=== PATIENT | female | born 1940 | race Caucasian/White ===

== ENCOUNTER 2016-03-05 20:49 | Emergency (ER) | payer MEDICARE, OTHER ==
[2016-03-05] MEDS ORDERED: ALTEPLASE, RECOMBINANT 50 MG PDS IV ONE ×3 (21:11→21:15)
[2016-03-05 21:23] LABS: BASOPHILS % (AUTO) 1 % (0-3); EOSINOPHILS % (AUTO) 3 % (0-9); HEMATOCRIT 38 % (35-47); MEAN CORPUSCULAR HGB CONC 32.7 gm/dl (32.0-36.0); MONOCYTES % (AUTO) 14.4 % (0-12); NEUTROPHILS % (AUTO) 50.1 % (37-80)
[2016-03-05] MEDS ORDERED: LEVETIRACETAM IV ONE ×2 (21:26→21:27)
[2016-03-05 21:27] VITALS: TEMP 98.2
[2016-03-05 21:31] LABS: CALCIUM 8.9 mg/dl (8.5-10.1)
[2016-03-05] MEDS ORDERED: LORAZEPAM 2 MG/ML SOL IV ONE (21:32)
[2016-03-05] MEDS ORDERED: LORAZEPAM 2 MG/ML SOL ONE (21:33)
[2016-03-05] MEDS ORDERED: LIDOCAINE HCL 2% (100 MG) CARP ONE (21:44)
[2016-03-05] MEDS ORDERED: ATROPINE 0.1 MG/ML SOL ONE (21:44)
[2016-03-05] MEDS ORDERED: ETOMIDATE 2 MG/ML SOL IV ONE ×2 (21:45→22:16)
[2016-03-05] MEDS ORDERED: SUCCINYLCHOLINE CHLORIDE 20 MG/ML SOL IV ONE ×2 (21:45→22:16)
[2016-03-05] MEDS ORDERED: KETAMINE HYDROCHLORIDE 50 MG/ML SOL ONE (22:02)
[2016-03-05] MEDS ORDERED: KETAMINE HYDROCHLORIDE 50 MG/ML SOL IV ONE ×2 (22:16→22:25)
[2016-03-05 22:33] LABS: APPEARANCE,URINE Slightly Cloudy; BILIRUBIN,URINE NEGATIVE (NEGATIVE); COLOR,URINE Yellow; GLUCOSE, URINE (UA) NEGATIVE (NEGATIVE); KETONES,URINE NEGATIVE (NEGATIVE); LEUKOCYTE ESTERASE ,URINE NEGATIVE (NEGATIVE); NITRATE,URINE NEGATIVE (NEGATIVE); OCCULT BLOOD,URINE 2+ (NEG-TRACE); PH,URINE 5.5; UROBILINOGEN,URINE 0.2 (0.2-1.0 EU)
[2016-03-05 22:48] LABS: WBC,URINE 0-1 (0-5AV/HPF)
[2016-03-05 23:41] VITALS: BP 188/89; PULSE 88; RESP 10; O2SAT 98
== END 2016-03-05 22:30 | disposition short-term general hospital (02) | DRG 66 ==
LOC: ED 20:49
DX: I63.9 Cerebral infarction, unspecified (principal); R56.9 Unspecified convulsions
CPT/HCPCS: 31500; 70450; 71010; 80048; 81001; 85025; 85610; 87088; 99291; J0330; J0461; J2001; J2060; J2997; J1953

== ENCOUNTER 2016-09-23 04:39 | Emergency (ER) | payer MEDICARE, OTHER ==
[2016-09-23] MEDS ORDERED: LABETALOL HYDROCHLORIDE 5 MG/ML SOL IV ONE ×2 (05:18→05:19)
[2016-09-23 05:21] LABS: BASOPHILS % (AUTO) 1 % (0-3); EOSINOPHILS % (AUTO) 3 % (0-9); HEMATOCRIT 45 % (35-47); MEAN CORPUSCULAR HGB CONC 31.7 gm/dl (32.0-36.0); MEAN CORPUSCULAR VOLUME 95 fL (81-99); MONOCYTES % (AUTO) 13.2 % (0-12); NEUTROPHILS % (AUTO) 42.9 % (37-80)
[2016-09-23 05:30] VITALS: TEMP 99.4
[2016-09-23] MEDS ORDERED: SODIUM CHLORIDE 0.9% 1000ML 1,000 ML IV ONE ×3 (05:30→06:50)
[2016-09-23] MEDS ORDERED: ALTEPLASE, RECOMBINANT 50 MG PDS IV ONE ×4 (05:43→05:57)
[2016-09-23 05:44] LABS: APPEARANCE,URINE Clear; BILIRUBIN,URINE NEGATIVE (NEGATIVE); COLOR,URINE Yellow; GLUCOSE, URINE (UA) NEGATIVE (NEGATIVE); KETONES,URINE NEGATIVE (NEGATIVE); LEUKOCYTE ESTERASE ,URINE NEGATIVE (NEGATIVE); NITRATE,URINE NEGATIVE (NEGATIVE); OCCULT BLOOD,URINE TRACE LYSED (NEG-TRACE); UROBILINOGEN,URINE 0.2 (0.2-1.0 EU)
[2016-09-23 05:46] LABS: ALT 9 IU/L (14-63); CALCIUM 8.7 mg/dl (8.5-10.1); GLOM FILT RATE 28 mL/min (>60); POTASSIUM 3.7 mMol/L (3.5-5.1); SODIUM 140 mMol/L (136-145); THYROID STIMULATING HORMONE 6.539 uIU/ml (0.358-3.740)
[2016-09-23 05:55] LABS: RBC,URINE 0-3 (0-3AV/HPF); WBC,URINE 0-1 (0-5AV/HPF)
[2016-09-23] MEDS ORDERED: FOSPHENYTOIN 50 MG PE/ML SOL IV ONE (06:12)
[2016-09-23] MEDS ORDERED: FOSPHENYTOIN 50 MG PE/ML SOL ONE (06:20)
[2016-09-23] MEDS ORDERED: LORAZEPAM 2 MG/ML SOL IV ONE (06:53)
[2016-09-23] MEDS ORDERED: ATROPINE 0.1 MG/ML SOL ONE (07:10)
[2016-09-23] MEDS ORDERED: ETOMIDATE 2 MG/ML SOL IV ONE ×3 (07:10→07:31)
[2016-09-23] MEDS ORDERED: SUCCINYLCHOLINE CHLORIDE 20 MG/ML SOL IV ONE (07:11)
[2016-09-23] MEDS ORDERED: ROCURONIUM BROMIDE 10 MG/ML SOL IV ONE ×2 (07:11→07:32)
[2016-09-23] MEDS ORDERED: LIDOCAINE HCL 2% (100 MG) CARP ONE (07:11)
[2016-09-23] MEDS ORDERED: ATROPINE 0.1 MG/ML SOL IV ONE ×2 (07:19→07:24)
[2016-09-23] MEDS ORDERED: NOREPINEPHRINE BITARTRATE 4 MG/4 ML SOL IV ONE (07:38)
[2016-09-23] MEDS ORDERED: SODIUM CHLORIDE 0.9% FLUSH 10 ML SOL IV PRN (07:41)
[2016-09-23] MEDS ORDERED: NOREPINEPHRINE BITARTRATE 4 MG/4 ML SOL IV SCH (07:45)
[2016-09-23] MEDS ORDERED: LEVETIRACETAM (PREMIX) 1 GM 1 GM/100 ML SOL IV ONE ×2 (07:54→07:58)
[2016-09-23 08:45] VITALS: BP 73/34
[2016-09-23 08:47] VITALS: PULSE 43; RESP 20; O2SAT 91
== END 2016-09-23 08:00 | disposition short-term general hospital (02) | DRG 65 ==
LOC: ED 04:39
DX: I63.9 Cerebral infarction, unspecified (principal); G81.04 Flaccid hemiplegia affecting left nondominant side; R56.9 Unspecified convulsions; R50.9 Fever, unspecified; R79.89 Other specified abnormal findings of blood chemistry; R09.02 Hypoxemia; R41.0 Disorientation, unspecified
CPT/HCPCS: 36415; 70450; 80053; 81003; 84443; 84484; 85025; 85610; 87040; 93005; 99291; J0330; J0461; J2001; J2997; Q2009; J1953

== ENCOUNTER 2017-09-22 20:27 | Emergency (ER) | payer MEDICARE, OTHER ==
[2017-09-22] MEDS ORDERED: SODIUM CHLORIDE 0.9% 1000ML 1,000 ML IV SCH (21:00)
[2017-09-22 21:01] LABS: BASOPHILS % (AUTO) 1 % (0-3); EOSINOPHILS % (AUTO) 3 % (0-9); HEMATOCRIT 44 % (35-47); HEMOGLOBIN 13.9 gm/dl (12.0-15.5); LYMPHOCYTES % (AUTO) 31.08 % (10-50); MEAN CORPUSCULAR HEMOGLOBIN 30.8 pg (27.0-32.0); MEAN CORPUSCULAR HGB CONC 31.3 gm/dl (32.0-36.0); MONOCYTES % (AUTO) 12.7 % (0-12); NEUTROPHILS % (AUTO) 52.2 % (37-80)
[2017-09-22 21:04] LABS: MEAN CORPUSCULAR VOLUME 99 fL (81-99)
[2017-09-22 21:24] LABS: ALBUMIN 3.3 gm/dl (3.4-5.0); ALKALINE PHOSPHATASE 79 IU/L (46-116); ALT 8 IU/L (14-63); AST 8 IU/L (15-37); BILIRUBIN,TOTAL 0.2 mg/dl (0.2-1.0); BLOOD UREA NITROGEN 28 mg/dl (7-18); CARBON DIOXIDE 28.9 mEq/L (21-32); CHLORIDE 104 mMol/L (98-107); CREATININE 1.61 mg/dl (0.60-1.00); GLUCOSE 140 mg/dl (74-106); POTASSIUM 4.7 mMol/L (3.5-5.1); SODIUM 139 mMol/L (136-145); THYROID STIMULATING HORMONE 2.179 uIU/ml (0.358-3.740); TOTAL PROTEIN 7.6 gm/dl (6.4-8.2); TROP I < 0.017 ng/ml (0.000-0.056)
[2017-09-22 21:27] LABS: APPEARANCE,URINE Slightly Cloudy; BILIRUBIN,URINE NEGATIVE (NEGATIVE); COLOR,URINE Yellow; GLUCOSE, URINE (UA) NEGATIVE (NEGATIVE); KETONES,URINE NEGATIVE (NEGATIVE); LEUKOCYTE ESTERASE ,URINE 3+ (NEGATIVE); NITRATE,URINE NEGATIVE (NEGATIVE); OCCULT BLOOD,URINE 2+ (NEG-TRACE); UROBILINOGEN,URINE 0.2 (0.2-1.0 EU)
[2017-09-22 21:39] LABS: BACTERIA 1+ (< 1+); CRYSTALS NEGATIVE (0-3 AVE/HPF); EPITHELIAL CELLS 0-3 (SQUAMOUS); WBC,URINE 90-100 (0-5AV/HPF)
[2017-09-22] MEDS ORDERED: NITROGLYCERIN 0.4 MG TAB SL ONE (21:46)
[2017-09-22] MEDS ORDERED: NITROGLYCERIN 0.4 MG TAB SL PRN (21:50)
[2017-09-22] MEDS ORDERED: MAGNESIUM SULFATE 5 GM/10 ML SOL IV ONE (21:51)
[2017-09-22] MEDS ORDERED: MAGNESIUM SULFATE 5 GM/10 ML SOL ONE (21:53)
[2017-09-22] MEDS ORDERED: HALOPERIDOL LACTATE 5 MG/ML SOL IM ONE (22:09)
[2017-09-22] MEDS ORDERED: KETOROLAC TROMETHAMINE 30 MG/ML SOL ONE (22:09)
[2017-09-22] MEDS ORDERED: KETOROLAC TROMETHAMINE 30 MG/ML SOL IV ONE (22:10)
[2017-09-22] MEDS ORDERED: HALOPERIDOL LACTATE 5 MG/ML SOL ONE (22:19)
[2017-09-22] MEDS ORDERED: SULFAMETHOXAZOLE/TRIMETHOPRI 800/160 MG ONE (22:39)
[2017-09-22] MEDS ORDERED: LEVETIRACETAM 100 MG/ML SOL PO SCH (22:45)
[2017-09-22] MEDS ORDERED: METOPROLOL TARTRATE 5 MG/5 ML SOL IV ONE ×4 (22:46→23:05)
[2017-09-22] MEDS ORDERED: LEVETIRACETAM 250 MG TAB ONE (22:51)
[2017-09-23 00:15] VITALS: BP 188/87; PULSE 56; RESP 16; TEMP 97.4; O2SAT 98
[2017-09-23] MEDS ORDERED: SULFAMETHOXAZOLE/TRIMETHOPRI 800/160 MG PO SCH (09:00)
== END 2017-09-23 00:01 | DRG 948 ==
LOC: ED 20:27 → UNDOADMIN 22:00 → ACUTE CARE 22:00
DX: R41.82 Altered mental status, unspecified (principal); N30.00 Acute cystitis without hematuria; F31.9 Bipolar disorder, unspecified; R47.81 Slurred speech; R25.3 Fasciculation; R41.0 Disorientation, unspecified; R40.2362 Coma scale, best motor response, obeys commands, at arrival to emergency department; R40.2142 Coma scale, eyes open, spontaneous, at arrival to emergency department; R40.2242 Coma scale, best verbal response, confused conversation, at arrival to emergency department; I10 Essential (primary) hypertension
CPT/HCPCS: 36415; 70450; 71045; 80053; 81001; 84443; 84484; 85025; 87088; 93005; 96365; 96366; 96372; 96374; 96375; 99284; 99285; J1630; J1885; J3475; A9270-GY; J3490

== ENCOUNTER 2018-07-25 12:12 | Emergency (ER) | payer MEDICARE, OTHER ==
[2018-07-25 12:24] VITALS: TEMP 97.5
[2018-07-25 12:54] LABS: BASOPHILS % (AUTO) 0 % (0-3); EOSINOPHILS % (AUTO) 1 % (0-9); HEMATOCRIT 34 % (35-47); HEMOGLOBIN 10.4 gm/dl (12.0-15.5); LYMPHOCYTES % (AUTO) 13.8 % (10-50); MEAN CORPUSCULAR HEMOGLOBIN 33.1 pg (27.0-32.0); MEAN CORPUSCULAR HGB CONC 30.7 gm/dl (32.0-36.0); MONOCYTES % (AUTO) 11.8 % (0-12); NEUTROPHILS % (AUTO) 72.6 % (37-80)
[2018-07-25 12:56] LABS: MEAN CORPUSCULAR VOLUME 108 fL (81-99)
[2018-07-25 13:04] LABS: ALBUMIN 2.2 gm/dl (3.4-5.0); BILIRUBIN,TOTAL 0.3 mg/dl (0.2-1.0); CALCIUM 10.1 mg/dl (8.5-10.1); CARBON DIOXIDE 27.8 mEq/L (21-32); CREATININE 1.82 mg/dl (0.60-1.00); POTASSIUM 4.6 mMol/L (3.5-5.1); TOTAL PROTEIN 6.6 gm/dl (6.4-8.2)
[2018-07-25 15:42] VITALS: RESP 20; O2SAT 99
[2018-07-25 15:43] VITALS: BP 166/65; PULSE 78
== END 2018-07-25 15:31 | disposition short-term general hospital (02) | DRG 884 ==
LOC: ED 12:12
DX: R40.4 Transient alteration of awareness (principal); R40.2362 Coma scale, best motor response, obeys commands, at arrival to emergency department; R40.2142 Coma scale, eyes open, spontaneous, at arrival to emergency department; R40.2242 Coma scale, best verbal response, confused conversation, at arrival to emergency department
CPT/HCPCS: 36415; 71045; 80053; 84484; 85025; 93005; 99284; 99285

== ENCOUNTER 2018-08-02 12:31 | Emergency (ER) | payer MEDICARE, OTHER ==
[2018-08-02 12:48] VITALS: RESP 16; TEMP 97.8
[2018-08-02] MEDS ORDERED: SODIUM CHLORIDE 0.9% 1000ML 1,000 ML IV ONE (13:22)
[2018-08-02 13:55] LABS: LACTIC ACID 2.4 mMol/L (0.0-2.0)
[2018-08-02 14:14] LABS: CRP INFLAMMATORY 50.63 mg/dl (0.00-0.33)
[2018-08-02 14:38] LABS: APPEARANCE,URINE Cloudy; BILIRUBIN,URINE NEGATIVE (NEGATIVE); COLOR,URINE Yellow; GLUCOSE, URINE (UA) NEGATIVE (NEGATIVE); KETONES,URINE NEGATIVE (NEGATIVE); LEUKOCYTE ESTERASE ,URINE 2+ (NEGATIVE); NITRATE,URINE POSITIVE (NEGATIVE); OCCULT BLOOD,URINE 3+ (NEG-TRACE); PH,URINE 5.5
[2018-08-02 14:52] LABS: BACTERIA 3+ (< 1+); CRYSTALS NEGATIVE (0-3 AVE/HPF); WBC,URINE 75-80 (0-5AV/HPF)
[2018-08-02] MEDS ORDERED: CEFTRIAXONE 1 GM PDS 1 GM in SODIUM CHLORIDE 0.9% 50 ML 50 ML IV ONE (15:44)
[2018-08-02] MEDS ORDERED: CEFTRIAXONE 1 GM PDS ONE (15:46)
[2018-08-02 17:51] VITALS: BP 186/96; PULSE 78; O2SAT 97
== END 2018-08-02 17:25 | DRG 690 ==
LOC: ED 12:31
DX: N30.00 Acute cystitis without hematuria (principal); E86.0 Dehydration; R40.2362 Coma scale, best motor response, obeys commands, at arrival to emergency department; R40.2142 Coma scale, eyes open, spontaneous, at arrival to emergency department; R40.2242 Coma scale, best verbal response, confused conversation, at arrival to emergency department
CPT/HCPCS: 81001; 87077; 87088; 87186; 96365; 96366; 99070; 99283; 99285; J0696

== ENCOUNTER 2018-08-03 21:31 | Inpatient (IN) | payer MEDICARE, OTHER ==
[2018-08-03] MEDS ORDERED: SODIUM CHLORIDE 0.9% 1000ML 1,000 ML IV ONE (21:57)
[2018-08-03 22:29] LABS: HEMATOCRIT 27 % (35-47); HEMOGLOBIN 8.3 gm/dl (12.0-15.5); MEAN CORPUSCULAR HEMOGLOBIN 33.3 pg (27.0-32.0); MEAN CORPUSCULAR HGB CONC 31.1 gm/dl (32.0-36.0)
[2018-08-03 22:49] LABS: ALBUMIN 1.3 gm/dl (3.4-5.0); BILIRUBIN,TOTAL 0.4 mg/dl (0.2-1.0); CALCIUM 9.4 mg/dl (8.5-10.1); CARBON DIOXIDE 26.3 mEq/L (21-32); CREATININE 3.79 mg/dl (0.60-1.00); CRP INFLAMMATORY 26.12 mg/dl (0.00-0.33); MAGNESIUM 2.8 mg/dl (1.8-2.4); POTASSIUM 4.1 mMol/L (3.5-5.1); TOTAL PROTEIN 6.2 gm/dl (6.4-8.2)
[2018-08-03 22:56] LABS: MEAN CORPUSCULAR VOLUME 107 fL (81-99)
[2018-08-03 22:57] LABS: BAND NEUTROPHILS % (MANUAL) 3 %; BASOPHILS % (MANUAL) 0 % (0-3); BLAST CELLS% 1; EOSINOPHILS % (MANUAL) 0 % (0-9); LYMPHOCYTES % (MANUAL) 10 % (10-50); MONOCYTES % (MANUAL) 12 % (0-12); NEUTROPHILS % (MANUAL) 74 % (37-80)
[2018-08-03 22:58] LABS: POIKILOCYTOSIS SLIGHT AMT
[2018-08-03 23:14] LABS: LACTIC ACID 1.7 mMol/L (0.0-2.0)
[2018-08-04] MEDS: SODIUM CHLORIDE 0.9% 1000ML 1,000 ML IV SCH ×2 (00:44→12:06)
[2018-08-04] MEDS: QUETIAPINE FUMARATE 25 MG TAB PO SCH ×2 (00:45→20:00)
[2018-08-04 03:38] LABS: CALCIUM 9.1 mg/dl (8.5-10.1); CARBON DIOXIDE 23.4 mEq/L (21-32); CREATININE 3.5 mg/dl (0.60-1.00); POTASSIUM 3.8 mMol/L (3.5-5.1)
[2018-08-04] MEDS: SODIUM CHLORIDE 0.9% FLUSH 10 ML SOL IV SCH ×2 (08:15→16:27)
[2018-08-04] MEDS: CIPROFLOXACIN HCL 500 MG TAB PO SCH ×2 (10:08→20:00)
[2018-08-04] MEDS: FOLIC ACID 1 MG TAB PO SCH (10:10)
[2018-08-04] MEDS: DEXTROSE 1000 ML 1,000 ML IV SCH (14:24)
[2018-08-04] MEDS: VALPROIC ACID 250 MG/5 ML PO SCH (19:45)
[2018-08-05] MEDS: DEXTROSE 1000 ML 1,000 ML IV SCH ×4 (00:32→18:53)
[2018-08-05] MEDS: SODIUM CHLORIDE 0.9% FLUSH 10 ML SOL IV SCH ×3 (00:33→20:11)
[2018-08-05 07:21] LABS: CALCIUM 9.5 mg/dl (8.5-10.1); CARBON DIOXIDE 23.6 mEq/L (21-32); CREATININE 3.06 mg/dl (0.60-1.00); POTASSIUM 4.2 mMol/L (3.5-5.1)
[2018-08-05] MEDS: VALPROIC ACID 250 MG/5 ML PO SCH ×2 (08:27→20:14)
[2018-08-05] MEDS: FOLIC ACID 1 MG TAB PO SCH (08:28)
[2018-08-05] MEDS: CIPROFLOXACIN HCL 500 MG TAB PO SCH ×2 (08:28→20:14)
[2018-08-05 17:00] LABS: CARBON DIOXIDE 22.7 mEq/L (21-32); CREATININE 2.54 mg/dl (0.60-1.00); POTASSIUM 3.4 mMol/L (3.5-5.1)
[2018-08-05] MEDS ORDERED: POTASSIUM CHLORIDE 10 MEQ TER PO SCH (18:00)
[2018-08-05] MEDS ORDERED: POTASSIUM CHLORIDE 2 MEQ/ML 30 MEQ, LIDOCAINE HCL 1% MDV 2 ML in SODIUM CHLORIDE 0.9% 5... IV ONE (18:20)
[2018-08-05] MEDS ORDERED: POTASSIUM CHLORIDE 2 MEQ/ML SOL IV ONE (18:35)
[2018-08-05] MEDS ORDERED: LIDOCAINE HCL 1% MPF 30 SOL ONE (18:37)
[2018-08-05] MEDS: ONDANSETRON HCL 4 MG/2 ML SOL IV PRN (18:50)
[2018-08-05 20:04] LABS: CALCIUM 9.2 mg/dl (8.5-10.1)
[2018-08-05] MEDS ORDERED: QUETIAPINE FUMARATE 400 MG TAB PO SCH (21:00)
[2018-08-06] MEDS: SODIUM CHLORIDE 0.9% FLUSH 10 ML SOL IV SCH ×3 (01:48→15:59)
[2018-08-06] MEDS: DEXTROSE 1000 ML 1,000 ML IV SCH ×3 (02:34→21:06)
[2018-08-06 07:44] LABS: CALCIUM 9.1 mg/dl (8.5-10.1); CARBON DIOXIDE 22.7 mEq/L (21-32); CREATININE 2.46 mg/dl (0.60-1.00); POTASSIUM 4.1 mMol/L (3.5-5.1)
[2018-08-06] MEDS: VALPROIC ACID 250 MG/5 ML PO SCH ×2 (08:44→09:27)
[2018-08-06] MEDS: CIPROFLOXACIN HCL 500 MG TAB PO SCH (08:44)
[2018-08-06] MEDS: FOLIC ACID 1 MG TAB PO SCH (08:44)
[2018-08-06] MEDS: LEVOTHYROXINE SODIUM 112 MCG TAB PO SCH (12:04)
[2018-08-06] MEDS: METOCLOPRAMIDE HYDROCHLORIDE 5 MG TAB PO SCH ×3 (12:05→21:09)
[2018-08-06 16:29] LABS: CREATININE 2.43 mg/dl (0.60-1.00); POTASSIUM 4.4 mMol/L (3.5-5.1)
[2018-08-06] MEDS: QUETIAPINE FUMARATE 25 MG TAB PO SCH (21:09)
[2018-08-06] MEDS ORDERED: DEXTROSE 1000 ML 1,000 ML IV SCH (23:30)
[2018-08-07] MEDS: SODIUM CHLORIDE 0.9% FLUSH 10 ML SOL IV SCH ×2 (00:20→15:15)
[2018-08-07] MEDS: METOCLOPRAMIDE HYDROCHLORIDE 5 MG TAB PO SCH (06:19)
[2018-08-07] MEDS: LEVOTHYROXINE SODIUM 112 MCG TAB PO SCH (06:19)
[2018-08-07] MEDS ORDERED: DEXTROSE/SALINE 0.45% 1,000 ML IV SCH (08:00)
[2018-08-07 08:11] LABS: CALCIUM 9.2 mg/dl (8.5-10.1); CARBON DIOXIDE 24.6 mEq/L (21-32); CREATININE 2.2 mg/dl (0.60-1.00); POTASSIUM 4.5 mMol/L (3.5-5.1)
[2018-08-07] MEDS: VALPROIC ACID 250 MG/5 ML PO SCH ×2 (08:29→20:18)
[2018-08-07] MEDS: FOLIC ACID 1 MG TAB PO SCH (09:16)
[2018-08-07] MEDS: LEVODOPA PO SCH ×2 (10:28→15:58)
[2018-08-07] MEDS: CARBIDOPA PO SCH ×2 (10:28→15:58)
[2018-08-07] MEDS: DEXTROSE/SALINE 0.45% 1,000 ML IV SCH ×2 (14:59→20:30)
[2018-08-07] MEDS: DEXTROSE 1000 ML 1,000 ML IV SCH (19:34)
[2018-08-07] MEDS: QUETIAPINE FUMARATE 25 MG TAB PO SCH (20:19)
[2018-08-08] MEDS: CARBIDOPA PO SCH (06:06)
[2018-08-08] MEDS: LEVOTHYROXINE SODIUM 112 MCG TAB PO SCH (06:06)
[2018-08-08] MEDS: LEVODOPA PO SCH (06:06)
[2018-08-08 07:05] LABS: CALCIUM 9.1 mg/dl (8.5-10.1); CARBON DIOXIDE 23.1 mEq/L (21-32); CREATININE 2.05 mg/dl (0.60-1.00); POTASSIUM 4.2 mMol/L (3.5-5.1)
[2018-08-08] MEDS: FOLIC ACID 1 MG TAB PO SCH (08:53)
[2018-08-08] MEDS: VALPROIC ACID 250 MG/5 ML PO SCH ×2 (09:06→21:04)
[2018-08-08] MEDS: ONDANSETRON HCL 4 MG/2 ML SOL IV PRN (09:09)
[2018-08-08] MEDS ORDERED: SODIUM CHLORIDE 0.9% FLUSH 10 ML SOL IV PRN (09:10)
[2018-08-08] MEDS: DEXTROSE/SALINE 0.45% 1,000 ML IV SCH (10:11)
[2018-08-08] MEDS ORDERED: FUROSEMIDE 20mg SOL IV SCH (10:30)
[2018-08-08] MEDS: SODIUM CHLORIDE 0.45% 1000 ML 1,000 ML IV SCH (11:23)
[2018-08-08] MEDS: SODIUM CHLORIDE 0.9% FLUSH 10 ML SOL IV SCH ×2 (11:24→20:43)
[2018-08-08] MEDS: CARBIDOPA/LEVODOPA 25/100 TAB PO SCH ×2 (11:24→15:47)
[2018-08-08] MEDS: QUETIAPINE FUMARATE 25 MG TAB PO SCH (21:12)
[2018-08-08] MEDS ORDERED: ACETAMINOPHEN 500 MG 500 MG TAB PO ONE (22:00)
[2018-08-09] MEDS: SODIUM CHLORIDE 0.9% FLUSH 10 ML SOL IV SCH ×3 (05:13→17:26)
[2018-08-09] MEDS: CARBIDOPA/LEVODOPA 25/100 TAB PO SCH ×3 (06:28→16:10)
[2018-08-09] MEDS: LEVOTHYROXINE SODIUM 112 MCG TAB PO SCH (06:29)
[2018-08-09 07:25] LABS: CARBON DIOXIDE 24.2 mEq/L (21-32); CREATININE 2.09 mg/dl (0.60-1.00)
[2018-08-09 07:28] LABS: HEMATOCRIT 26 % (35-47); HEMOGLOBIN 7.9 gm/dl (12.0-15.5); MEAN CORPUSCULAR HEMOGLOBIN 32.4 pg (27.0-32.0); MEAN CORPUSCULAR HGB CONC 30.3 gm/dl (32.0-36.0)
[2018-08-09 07:30] LABS: MEAN CORPUSCULAR VOLUME 107 fL (81-99)
[2018-08-09 07:52] LABS: BAND NEUTROPHILS % (MANUAL) 14 %; LYMPHOCYTES % (MANUAL) 24 % (10-50); MONOCYTES % (MANUAL) 3 % (0-12); NEUTROPHILS % (MANUAL) 56 % (37-80)
[2018-08-09 07:53] LABS: ANISOCYTOSIS MOD AMT; BASOPHILS % (MANUAL) 9 % (0-3); EOSINOPHILS % (MANUAL) 1 % (0-9); METAMYELOCYTES%(MANUAL) 2
[2018-08-09] MEDS: FOLIC ACID 1 MG TAB PO SCH (09:20)
[2018-08-09] MEDS: VALPROIC ACID 250 MG/5 ML PO SCH ×2 (09:20→20:55)
[2018-08-09] MEDS: ACETAMINOPHEN 325 MG PO PRN ×2 (14:32→20:07)
[2018-08-09] MEDS ORDERED: FUROSEMIDE 20mg SOL IV ONE (18:00)
[2018-08-09] MEDS: SODIUM CHLORIDE 0.45% 1000 ML 1,000 ML IV SCH ×2 (18:30→20:56)
[2018-08-09] MEDS: THIAMINE 100 MG/ML 100 MG/ML SOL IV SCH (20:13)
[2018-08-10] MEDS: LEVOTHYROXINE SODIUM 112 MCG TAB PO SCH (06:03)
[2018-08-10] MEDS: CARBIDOPA/LEVODOPA 25/100 TAB PO SCH ×2 (06:03→13:12)
[2018-08-10] MEDS: SODIUM CHLORIDE 0.9% FLUSH 10 ML SOL IV SCH ×3 (06:04→10:37)
[2018-08-10] MEDS: VALPROIC ACID 250 MG/5 ML PO SCH (08:23)
[2018-08-10] MEDS: FOLIC ACID 1 MG TAB PO SCH (08:23)
[2018-08-10] MEDS: ACETAMINOPHEN 325 MG PO PRN (08:25)
[2018-08-10 08:42] LABS: CALCIUM 9.2 mg/dl (8.5-10.1); CARBON DIOXIDE 26.1 mEq/L (21-32); CREATININE 2.31 mg/dl (0.60-1.00); POTASSIUM 4.4 mMol/L (3.5-5.1); THYROID STIMULATING HORMONE 7.515 uIU/ml (0.358-3.740)
[2018-08-10] MEDS: ONDANSETRON HCL 4 MG/2 ML SOL IV PRN (08:51)
[2018-08-10] MEDS: THIAMINE 100 MG/ML 100 MG/ML SOL IV SCH (10:34)
[2018-08-10 12:11] LABS: APPEARANCE,URINE Clear; BILIRUBIN,URINE NEGATIVE (NEGATIVE); COLOR,URINE Yellow; GLUCOSE, URINE (UA) NEGATIVE (NEGATIVE); KETONES,URINE NEGATIVE (NEGATIVE); LEUKOCYTE ESTERASE ,URINE NEGATIVE (NEGATIVE); NITRATE,URINE NEGATIVE (NEGATIVE); OCCULT BLOOD,URINE NEGATIVE (NEG-TRACE); PH,URINE 5.5; UROBILINOGEN,URINE 0.2 (0.2-1.0 EU)
[2018-08-10 12:50] LABS: RBC,URINE NEG (0-3AV/HPF)
[2018-08-10 12:51] LABS: BACTERIA TRACE (< 1+); CRYSTALS NEGATIVE (0-3 AVE/HPF); EPITHELIAL CELLS NEGATIVE (SQUAMOUS); WBC,URINE 0-1 (0-5AV/HPF)
[2018-08-10 13:05] VITALS: RESP 16
[2018-08-10] MEDS: SODIUM CHLORIDE 0.45% 1000 ML 1,000 ML IV SCH (13:50)
[2018-08-10 14:51] VITALS: BP 114/61; PULSE 60; TEMP 97.7; O2SAT 94
== END 2018-08-10 15:45 | disposition short-term general hospital (02) | DRG 641 ==
LOC: ED 21:31 → ACUTE CARE 23:32
PROVIDERS: ADMIT Surgery; ATTEND Surgery
DX: E86.0 Dehydration (principal); N18.5 Chronic kidney disease, stage 5; N39.0 Urinary tract infection, site not specified; N18.9 Chronic kidney disease, unspecified; N17.9 Acute kidney failure, unspecified; F50.89 Other specified eating disorder; E03.9 Hypothyroidism, unspecified; F30.9 Manic episode, unspecified; E87.0 Hyperosmolality and hypernatremia; R06.02 Shortness of breath; R41.82 Altered mental status, unspecified; R60.1 Generalized edema; D64.9 Anemia, unspecified
CPT/HCPCS: 36415; 70551; 80048; 80053; 81001; 82140; 82962; 83735; 84100; 84295; 84443; 85007; 85027; 85651; 96365; 99070; 99223; 99232; 99283; J1940; J2405; J3480; A6232; A9270-GY; J2001; J3411